=== PATIENT | male | born 1955 | race Caucasian/White ===

== ENCOUNTER 2017-10-30 12:07 | Emergency (ER) | payer OTHER ==
[~2017-10-30] VITALS: Ht 167.6 cm; Wt 77.1 kg
[2017-10-30 13:53] LABS: ABSOLUTE BASOPHIL COUNT 0 /CUMM (0.0-0.2); ABSOLUTE EOSINOPHIL COUNT 0.2 /CUMM (0.0-0.7); ABSOLUTE GRANULOCYTE CT 17.1 /CUMM (1.4-6.5); ABSOLUTE LYMPH COUNT 0.8 /CUMM (1.2-3.4); ABSOLUTE MONOCYTE COUNT 1.2 /CUMM (0.10-0.60); BASOPHIL % 0.1 % (0.0-2.0); GRANULOCYTE % 88.7 % (42.2-75.2); HEMATOCRIT 45.5 % (42-52); MEAN CORPUSCULAR HGB 31.6 PG (27.0-31.0); MEAN CORPUSCULAR HGB CONC 33.4 G/DL (33.0-37.0); MEAN CORPUSCULAR VOLUME 94.6 FL (80.0-94.0); MEAN PLATELET VOLUME 8.6 FL (7.4-10.4); PLATELET COUNT 226 /CUMM (130-400); RBC DISTRIBUTION WIDTH 15.1 % (11.5-14.5); RED BLOOD CELL CT 4.81 /CUMM (4.70-6.10); WHITE BLOOD CELL COUNT 19.3 /CUMM (4.8-10.8)
--- NOTE | 2017-10-30 14:06 | ED THROAT/DENTAL COMPLAINT ---
History of Present Illness General Chief Complaint: Sore Throat, Dental Pain Stated Complaint: ?TOOTH INFECTION, SWELLING TO FACE Source: patient Exam Limitations: no limitations Vital Signs & Intake/Output Vital Signs & Intake/Output Vital Signs Date Time Temp Pulse Resp B/P B/P Pulse O2 O2 Flow FiO2 Mean Ox Delivery Rate 10/30 1750 97.1 55 20 122/70 100 Room Air 10/30 1715 Room Air 10/30 1545 98.5 64 20 122/70 10/30 1215 96.2 107 18 102/68 97 Room Air Allergies Coded Allergies: bee venom protein (honey bee) (SWELLING 10/30/17) morphine (NAUSEA PER PT 10/30/17) Reconcile Medications Amoxicillin 500 MG CAPSULE 1 CAP PO Q6H ABX (Reported) Buprenorphine HCl (Belbuca) (Unknown Strength) FILM (Unknown Dose) UNKNOWN ( Reported) Eluxadoline (Viberzi) 100 MG TABLET 0.5 TAB PO BID IBS (Reported) Lisinopril 10 MG TABLET 1 TAB PO DAILY BP (Reported) Oxycodone HCl 10 MG TABLET 1 TAB PO Q8H PRN PAIN (Reported) Tadalafil (Cialis) 5 MG TABLET 1 TAB PO DAILY (Reported) Umeclidinium Brm/Vilanterol Tr (Anoro Ellipta 62.5-25 Mcg INH) 62.5 MCG-25 MCG/ ACTUATION BLST.W.DEV 1 PUFF INH DAILY COPD (Reported) Varenicline Tartrate (Chantix) (Unknown Strength) TAB.DS.PK (Unknown Dose) UNKNOWN (Reported) Triage Note: PT FROM HOME C/O RIGHT SIDED RADIATING TO LEFT DENTAL PAIN X3 DAYS. PT WAS SEEN AT DENTIST AND GIVEN AMOXICILLIN. PT BARLEY ABLE TO ANSWER QUESTIONS, VSS. KOFFI ALEXANDER IN FOR EVAL. Triage Nurses Notes Reviewed? yes Onset: Gradual Duration: day(s): Timing: recent history Severity: severe HPI: 62yo male with hx of HTN, COPD presents to ED complaining of right sided gingival pain and swelling worsening over the past 4 days. Patient states he started having right lower gingival infection on 10/26. He saw his dentist on and was started on amoxicillin. He has a follow-up tomorrow with the dentist. Patient states that despite use of antibiotics he has had persistent swelling to right face and chin and now swelling to left face. He also has increasing pain. Patient reports difficulty opening his jaw. He also reports slight difficulty with swallowing his secretions. Patient has been taking Tylenol for the pain however still has severe pain. He denies fevers, chills, abdominal pain, vomiting. (Irene Hale) Past History Travel History Traveled to [place] past 21 day No Medical History Any Pertinent Medical History? see below for history Cardiovascular: hypertension, FEMORAL BYPASS Respiratory: COPD Musculoskeletal: spinal stenosis Surgical History Surgical History: non-contributory Psychosocial History What is your primary language Greek Tobacco Use: Current Daily Use Daily Tobacco Use Amount/Type: => 5 Cigarettes daily ETOH Use: heavy use Family History Hx Contributory? No (Irene Hale) Review of Systems Review of Systems Constitutional: Reports: no symptoms. EENTM: Reports: see HPI. Respiratory: Reports: no symptoms. Cardiovascular: Reports: no symptoms. GI: Reports: see HPI. Genitourinary: Reports: no symptoms. Musculoskeletal: Reports: no symptoms. Skin: Reports: no symptoms. Neurological/Psychological: Reports: no symptoms. Hematologic/Endocrine: Reports: no symptoms. Immunologic/Allergic: Reports: no symptoms. All Other Systems: Reviewed and Negative (Irene Hale) Physical Exam Physical Exam General Appearance: well developed/nourished, no apparent distress, alert, awake Head: atraumatic, normal appearance Eyes: Bilateral: normal appearance. Nose: normal inspection Mouth/Throat: trismus, right lower gingival erythema and swelling, swelling to right cheek and swelling and induration to right chin Neck: swelling to right chin as mentioned above Cardiovascular/Respiratory: normal breath sounds, regular rate/rhythm, no respiratory distress Back: normal inspection, normal range of motion Neurologic/Psych: awake, alert, oriented x 3 Skin: intact, normal color, warm/dry Core Measures ACS in differential dx? No Sepsis Present: No Sepsis Focused Exam Completed? No (Irene Hale) Progress Differential Diagnosis: carious tooth, Ludwigs angina, odontogenic abscess, barbara -tonsillar abscess, stomatitis/gingivitis, tooth fracture Plan of Care: Orders Procedure Date/time Status BLOOD CULTURE 10/30 1440 Active Add-on Test (ER Only) 10/30 1406 Active LACTIC ACID 10/30 1305 Complete COMPREHENSIVE METABOLIC PANEL 07/29 1218 Complete CBC WITHOUT DIFFERENTIAL 10/30 1217 Complete Laboratory Tests 10/30/17 1305: Anion Gap 15, Estimated GFR > 60, BUN/Creatinine Ratio 27.5 H, Glucose 111 H, Lactic Acid 1.2, Calcium 9.8, Total Bilirubin 1.2, AST 29, ALT 37, Alkaline Phosphatase 107, Total Protein 7.7, Albumin 4.3, Globulin 3.4, Albumin/Globulin Ratio 1.3, CBC w Diff MAN DIFF ORDERED, RBC 4.81, MCV 94.6 H, MCH 31.6 H, MCHC 33.4, RDW 15.1 H, MPV 8.6, Gran % 88.7 H, Lymphocytes % 4.2 L, Monocytes % 6.0, Eosinophils % 1.0, Basophils % 0.1, Absolute Granulocytes 17.1 H, Absolute Lymphocytes 0.8 L, Absolute Monocytes 1.2 H, Absolute Eosinophils 0.2, Absolute Basophils 0, Platelet Estimate ADEQUATE, Normocytic RBCs VERIFIED, Normochromic RBCs VERIFIED Microbiology 10/30 1540 BLOOD: Blood Culture - RECD 10/30 1527 BLOOD: Blood Culture - RECD Physical exam findings show significant swelling and tenderness to right mandibular region. Labs show leukocytosis of 19. Given these findings patient started on IV fluids and IV antibiotics (Unasyn). CT is pending. CT shows evidence of 1-2 abscesses. Waiting ENT consult. Spoke with ENT bevel face stoner and polisher - Dr. Guzmán - who recommends transfer to [place] as they have 24-hour specialty care in this patient may require I&D/surgery given abscess findings. The plan for IV Unasyn. Spoke with [facility] regarding this patient. Spoke with ENT Dr. Franks regarding all findings. He accepts patient for ED to ED transfer. Patient consents to transfer. Dr. Baker agrees with plan of care. Diagnostic Imaging: Viewed by Me: CT Scan. Discussed w/RAD: CT Scan. Radiology Impression: PATIENT: DUNIA GRIFFIN PRESENT AGE: 62 PATIENT ACCOUNT NO: [id number] : 53 LOCATION: [facility] ORDERING PHYSICIAN: Fredi RAIN SERVICE DATE: 10/30/17-1217 EXAM TYPE: CAT - CT NECK W IV CONTRAST EXAMINATION: CT NECK WITH CONTRAST CLINICAL INFORMATION: Dental abscess right-sided jaw pain and swelling. Trismus. COMPARISON: None TECHNIQUE: CT scanning of the neck was performed after the uneventful administration of contrast. Coronal and sagittal reformatted images were generated. DLP: 487 mGy-cm FINDINGS: I was asked to read this study at 1558 on 10/30/2017. There is a right automobile glass technician space abscess with faint rim enhancement along the lingual cortex of the right hemimandible posteriorly this began is at approximately the level of the canal of the inferior alveolar nerve, and extends anteriorly to the parasymphyseal region, roughly 4.6 cm in oblique axial dimension. In orthogonal axial dimensions it measures up to approximately 1.1 cm. There is effacement of the fat at the entrance to the canal of the inferior alveolar nerve. There is mass effect on the mylohyoid which is displaced medially. This abuts the medial pterygoid which is slightly enlarged and indistinct. There is no erosion or periosteal reaction visualized within the mandible. Within the right masseter there is heterogeneous attenuation with enlargement and areas of hyperenhancement. A platelike area of nonenhancement measuring approximately 7 mm is concerning for a small intramuscular abscess. There is regional fat stranding. There is asymmetric hyperemia and enlargement of the right submandibular gland as well as of the right sublingual gland, compatible with a secondary sialadenitis. There are reactive level 1A and level 1B lymph nodes on the right which are hypervascular and measure up to 1.6 cm in long axis. There were also some reactive level 2 lymph nodes which are hyperemic and asymmetric though not frankly pathologically enlarged measuring up to 1.3 cm in long axis. There is thickening of the platysma and regional fat stranding Fairly symmetric in attenuation. There is effacement of the right fossa of Rosenmuller. The epiglottis is deflected during the study. Mild epiglottic thickening is not excluded. Otherwise the larynx is unremarkable. No upper mediastinal adenopathy. There are paraseptal emphysematous changes in the lung apices. The aortic arch is calcified but normal in caliber. There is calcification at the carotid bulbs. The imaged intracranial compartment appears unremarkable. The major dural venous sinuses, jugular bulbs, and jugular veins appear patent. The patient is nearly edentulous. There is a single carious mandibular molar remaining with mild periodontal lucency but no significant periapical lucency. There is a tooth fragment along the parasagittal right mandibular alveolus as well. The paranasal sinuses and nasal cavity are clear. The mastoid air cells and middle ear cavities are clear. The temporomandibular joints articulate normally. There is advanced cervical spondylosis with 2 screw fragments visualized at the C6 level. There appears to be have been prior anterior cervical discectomy and fusion at C3-C4 and C4-C5 with ankylosis across the disc spaces. There is grade 1 degenerative anterolisthesis of C2 on C3. There is a fairly well-corticated curvilinear lucency within the dens, nonspecific. IMPRESSION: There is a rim-enhancing abscess within the right automobile glass technician space abutting the lingual cortex of the right hemimandible, and measuring approximately 4.6 x 1.1 cm in maximal orthogonal axial dimensions. There is regional inflammatory change including right submandibular and sublingual sialadenitis and myositis involving the muscles of mastication as above. There is a 7 mm rim-enhancing structure within the right masseter which may reflect a tiny additional intramuscular abscess. There is effacement of the fat at the entrance to the canal of the inferior alveolar nerve. The patient is nearly edentulous. There is a remaining carious molar in the right hemimandible with minor periodontal lucency but no periapical lucency. There are reactive right level 1 and 2 lymph nodes. There is effacement of the right fossa of Rosenmuller which can be correlated with direct inspection. DICTATED BY: Jere Fisher MD DATE/TIME DICTATED:10/30/171557 CAN TENDER:KYLER DATE/ TIME TRANSCRIBED:10/30/171557 CONFIDENTIAL, DO NOT COPY WITHOUT APPROPRIATE AUTHORIZATION. <Electronically signed in Other Vendor System> SIGNED BY: Jere Fisher MD 10/30/17 1613 (Irene Hale) Departure Departure Disposition: OTHER [facility] (ACUTE) Condition: Stable Clinical Impression Primary Impression: Abscess of automobile glass technician space of mouth Referrals: Elio Renner MD (PCP/Family) Departure Forms: Customer Survey General Discharge Information (Irene Hale) PA/RETAIL MORTGAGE BANKER Co-Sign Statement Statement: ED Attending supervision documentation- [] I saw and evaluated the patient. I have also reviewed all the pertinent lab results and diagnostic results. I agree with the findings and the plan of care as documented in the PA's/RETAIL MORTGAGE BANKER's documentation. [x] I have reviewed the ED Record and agree with the PA's/RETAIL MORTGAGE BANKER's documentation. [] Additions or exceptions (if any) to the PAs/RETAIL MORTGAGE BANKER's note and plan are summarized below: [] (Samule FAUST,[facility]) Critical Care Note Critical Care Note Critical Care Time: 30-74 min (Lana RAIN,Irene Malik)
[2017-10-30] MEDS ORDERED: LISINOPRIL10 M1 PO (15:10)
[2017-10-30] MEDS ORDERED: ANORO ELLIPTA1 EACH INH (15:10)
[2017-10-30] MEDS ORDERED: VIBERZI100 MG PO (15:10)
[2017-10-30] MEDS ORDERED: CIALIS5 M1 PO (15:10)
[2017-10-30] MEDS ORDERED: AMOXICILLIN500 M2 PO (15:11)
[2017-10-30] MEDS ORDERED: OXYCODONE HCL10 M2 PO (15:11)
[2017-10-30] MEDS ORDERED: BELBUCA150 MCG (15:12)
[2017-10-30] MEDS ORDERED: CHANTIX1 EACH (15:12)
--- NOTE | 2017-10-30 16:13 | CT SCAN REPORT ---
EXAMINATION: CT NECK WITH CONTRAST CLINICAL INFORMATION: Dental abscess right-sided jaw pain and swelling. Trismus. COMPARISON: None TECHNIQUE: CT scanning of the neck was performed after the uneventful administration of contrast. Coronal and sagittal reformatted images were generated. DLP: 487 mGy-cm FINDINGS: I was asked to read this study at 1558 on 10/30/2017. There is a right repertoire manager space abscess with faint rim enhancement along the lingual cortex of the right hemimandible posteriorly this began is at approximately the level of the canal of the inferior alveolar nerve, and extends anteriorly to the parasymphyseal region, roughly 4.6 cm in oblique axial dimension. In orthogonal axial dimensions it measures up to approximately 1.1 cm. There is effacement of the fat at the entrance to the canal of the inferior alveolar nerve. There is mass effect on the mylohyoid which is displaced medially. This abuts the medial pterygoid which is slightly enlarged and indistinct. There is no erosion or periosteal reaction visualized within the mandible. Within the right masseter there is heterogeneous attenuation with enlargement and areas of hyperenhancement. A platelike area of nonenhancement measuring approximately 7 mm is concerning for a small intramuscular abscess. There is regional fat stranding. There is asymmetric hyperemia and enlargement of the right submandibular gland as well as of the right sublingual gland, compatible with a secondary sialadenitis. There are reactive level 1A and level 1B lymph nodes on the right which are hypervascular and measure up to 1.6 cm in long axis. There were also some reactive level 2 lymph nodes which are hyperemic and asymmetric though not frankly pathologically enlarged measuring up to 1.3 cm in long axis. There is thickening of the platysma and regional fat stranding Fairly symmetric in attenuation. There is effacement of the right fossa of Rosenmuller. The epiglottis is deflected during the study. Mild epiglottic thickening is not excluded. Otherwise the larynx is unremarkable. No upper mediastinal adenopathy. There are paraseptal emphysematous changes in the lung apices. The aortic arch is calcified but normal in caliber. There is calcification at the carotid bulbs. The imaged intracranial compartment appears unremarkable. The major dural venous sinuses, jugular bulbs, and jugular veins appear patent. The patient is nearly edentulous. There is a single carious mandibular molar remaining with mild periodontal lucency but no significant periapical lucency. There is a tooth fragment along the parasagittal right mandibular alveolus as well. The paranasal sinuses and nasal cavity are clear. The mastoid air cells and middle ear cavities are clear. The temporomandibular joints articulate normally. There is advanced cervical spondylosis with 2 screw fragments visualized at the C6 level. There appears to be have been prior anterior cervical discectomy and fusion at C3-C4 and C4-C5 with ankylosis across the disc spaces. There is grade 1 degenerative anterolisthesis of C2 on C3. There is a fairly well-corticated curvilinear lucency within the dens, nonspecific. IMPRESSION: There is a rim-enhancing abscess within the right repertoire manager space abutting the lingual cortex of the right hemimandible, and measuring approximately 4.6 x 1.1 cm in maximal orthogonal axial dimensions. There is regional inflammatory change including right submandibular and sublingual sialadenitis and myositis involving the muscles of mastication as above. There is a 7 mm rim-enhancing structure within the right masseter which may reflect a tiny additional intramuscular abscess. There is effacement of the fat at the entrance to the canal of the inferior alveolar nerve. The patient is nearly edentulous. There is a remaining carious molar in the right hemimandible with minor periodontal lucency but no periapical lucency. There are reactive right level 1 and 2 lymph nodes. There is effacement of the right fossa of Rosenmuller which can be correlated with direct inspection.
[2017-10-30 17:50] VITALS: BP 122/70
== END 2017-10-30 18:40 | disposition short-term general hospital (02) ==
LOC: ERH 12:07
PROVIDERS: Physician Assistant Medical
DX: K12.2 Cellulitis and abscess of mouth (principal); K13.79 Other lesions of oral mucosa; I10 Essential (primary) hypertension; F17.210 Nicotine dependence, cigarettes, uncomplicated; J44.9 Chronic obstructive pulmonary disease, unspecified
CPT/HCPCS: 87040; 96374; 96375; 96376